=== PATIENT | female | born 2005 | race Caucasian/White ===

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

== ENCOUNTER → 2025-02-04 | Outpatient (CLI) | payer OTHER, SELFPAY ==
--- OUTSIDE RECORDS SUMMARY | 2025-02-04 21:21 | XMS RPT_ITS | CCD ---
Author Organization [facility] Care Team Providers Care Malted Milk Supervisor Name Role Phone Alie Love Unavailable Unavailable Unavailable Unavailable Unavailable Unavailable Primary Care Provider Unavailabl e PROVIDER, UNKNOWN Referring Unavailable ANDERS MACIEL Primary Care AGGIE Chao MD Attending Unavailable ANDERS MACIEL Primary Care Phil hadley REFERRED, SELF Referring Unavailable SHANNON VALDOVINOS Attending Unavailable SHANNON VALDOVINOS Primary Care Unavailable REFERRED, SELF Referring Unavailable ANDERS MACIEL Attending Unavaila ble ANDERS MACIEL Admitting Unavaila SHANNON Johnson Primary Care Unavailable REFERRED, SELF Referring Unavailable SHANNON VALDOVINOS Attending Unavailable SHANNON VALDOVINOS [facility] Care Unavailable SHANNON VALDOVINOS Primary Care Unavailable REFERRED, SELF Referring Unavailable CRISTIAN LUJAN Attending Unavailable Assessment, Health Risk Referring Unavaila ble Assessment, Health Risk Attending Unavaila ble Medications Completed/Discontinued Medications Medication Drug Class(es) Dates Sig (Normalized) Sig (Original) [id number] 60 actuat albuterol 0.09 mg/actuat metered dose inhaler (4 sources) beta2-Adrenergic Agonist Start: 08-15-2021 take 2 puff(s) by mouth every four to six hours Albuterol Sulfate HFA 108 (90 Base) MCG/ACT Inhalation Aerosol Solution inhale 2 puffs by mouth every 4 to 6 hours if needed Quantity: 1 Refills: 0 Ordered: 15-Aug-2021 Alie Love MD Start : 15-Aug-2021 Active etonogestrel 68 mg drug implant (4 sources) Progestin Start: 08-15-2021 Nexplanon 68 MG Subcutaneous Implant Quantity: 0 Refills: 0 Ordered: 15-Aug-2021 Alie Love MD Start : 15-Aug-2021 Active montelukast 10 mg oral tablet (4 sources) Leukotriene Receptor Antagonist Start: 08-15-2021 take 1 tablet by mouth at bedtime Montelukast Sodium 10 MG Oral Tablet TAKE 1 TABLET AT BEDTIME. Quantity: 1 Refills: 1 Ordered: 15-Aug-2021 Alie Love MD Start : 15-Aug-2021 Active Spacer for Metered Dose Inhaler (4 sources) Start: 08-15-2021 Spacer for Metered Dose Inhaler USE DIRECTED Quantity: 1 Refills: 0 Ordered: 15-Aug-2021 Alie Love MD Start : 15-Aug-2021 Active Problems Problem Classification Problem Date Documented Da te Episodic/Chronic Asthma (4 sources) Reactive airway disease; Translations: [Asthma, unspecified type, unspecified] Chronic Immunizations and screening for infectious disease (2 sources) Vaccination needed; Translations: [Need for prophylactic vaccination and inoculation against other viral diseases] Episodic Nonspecific chest pain (4 sources) Chest pain; Translations: [Chest pain, unspecified] Episodic Other diseases of bladder and urethra (1 source) Uninhibited neuropathic bladder, not elsewhere classified; Translations: [Uninhibited neuropathic bladder, not elsewhere classified] Onset: 06-13-2023 Chronic Spondylosis; intervertebral disc disorders; other back problems (4 sources) Low back pain; Translations: [Lumbago] Episodic Results Test Name Value Interpretation Reference Range Facility Hepatitis B Surface Antibody on 01-04-2025 HEP B Surf Ab Non-Reactive Normal [facility] Comment on above: Result Comment: <8.5 mIU/mL: Non-Reactive 8.5<= x <11.5 mIU/mL: Indeterminate >=11.5 mIU/mL: Reactive Non Reactive: Inconsistent with immunity less than <10 mIU/mL Reactive: Consistent with immunity greater than or equal to 10 mIU/mL Performed By: #### L [id number] #### [facility] [address] [place], [address] Progress Noteon 08-17-2024 Special Education Coordinator Authentication Interface Message Text Patient ID: Shena Oliveira is a 19 y.o. female. Her chief complaint(s) include: 19 YEAR WELL CHILD Assessment 1. Routine general medical examination at a health care facility Plan Shena was seen today for 19 year well child. Diagnoses and associated orders for this visit: Routine general medical examination at a health care facility - PHQ9 Assessment With Score - Health Risk Assessment - MINERVA Milner loving [facility]. Paperwork for school filled out. Getting first set of PPD Declined flu shot Return in about 1 year (around 08/17/2025) for well check. 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 No bag loader was used. 19 YEAR WELL CHILD Education: Shena is in freshman year of college and is doing well. ([employer] STUDYING NURSING ). Eating: Shena eats regular meals including fruits and vegetables and has a calcium source. (DRINK WATER/MILK). Activities & Sports: Shena has friends, participates in clubs and has drivers license. (SORORITY). Drugs: Shena does not use tobacco, does not use drugs, does not use alcohol and does not vape. Safety: Shena uses seat belt. Shena does not use phone/text while driving. (CAN SWIM). Sex: (NONE). Suicidality: Shena has no depression and has no anxiety. Menstruation Last Menstrual period: hormonal therapy (IMPLANT NO PERIODS) Output Urine and Stool Pattern: Urine and Stool Pattern: Normal stool pattern, normal urine pattern, no nocturnal enuresis. Sleep Sleeping Difficulty: no difficulty sleeping Hours of sleep at a time: 7 Teen Anticipatory Guidance The following anticipatory guidance was reviewed during the visit: Nutrition: limit junk food/fast food and soft drinks. Safety: gun safety, home safety and use safety helmet/gear with activities. Health: age appropriate dental care, age appropriate sleep habits, don't use tobacco/ alcohol/ drugs/ diet pills/ inhalants and don't smoke or chew tobacco. (SEEN DENTIST). Screenings Previous Vaccine Reactions: No. Hearing Vision Concerns: The caregiver has no concerns about the patient's hearing. The caregiver has no concerns about the patient's vision. Caregiver refused vision and hearing screening. Primary Care Review of Systems Objective Vital Signs 08/17/24 1308 BP: 118/62 Pulse: 82 Resp: 16 Weight: 58.3 kg Height: 164 cm Body mass index is 21.68 kg/m . Physical Exam Nursing note reviewed. Constitutional: She appears well. She is active. No distress. Pt pleasant and cooperative for exam HENT: Head: Atraumatic. Ears: Right Ear: Tympanic membrane and external ear normal. Left Ear: Tympanic membrane and external ear normal. Nose: Nose normal. No nasal discharge. Mouth/Throat: Mucous membranes are moist. Dentition is normal. No pharynx erythema. Oropharynx is clear. Eyes: EOM are normal. Pupils are equal, round, and reactive to light. Right eyelid exhibits no discharge. Left eyelid exhibits no discharge. Right conjunctiva is not injected. Left conjunctiva is not injected. Neck: Neck supple. Thyroid normal. Cardiovascular: Normal rate, regular rhythm, S1 normal and S2 normal. Pulses are palpable. Heart murmur not heard. Pulmonary/Chest: Breath sounds normal. No respiratory distress. Exhibits no deformity. Abdominal: Soft. Bowel sounds are normal. She exhibits no distension and no mass. There is no hepatosplenomegaly. There is no abdominal tenderness. Musculoskeletal: Cervical back: Normal range of motion and neck supple. Lumbar back: No scoliosis. General: Normal range of motion. Lymphadenopathy: No right anterior cervical adenopathy present. No left anterior cervical adenopathy present. Neurological: She is alert. She has normal strength. She exhibits normal muscle tone. Gait normal. Skin: Skin is warm. Skin is not pale. Findings: No rash. Vitals reviewed: Blood pressure 118/62, pulse 82, resp. rate 16, height 164 cm, weight 58.3 kg, last menstrual period 04/06/2024. Exam conducted with a commercial credit officer present. Normal [facility] Urine POC 8102 5on 04-07-2024 Beta HCG ( test) Ql (U) Urine Test Entered On: 04/07/2024 9:33 EDT Performed On: 04/07/2024 9:33 EDT by Tracee Calderón Urine HCG Urine Beta Human Chorionic Gonadotropin Qualitative : Negative Tracee Calderón - 04/07/2024 9:33 EDT Normal [facility] Physician Progress No [email or web address] 04-07-2024 [facility] Physician Progress Note SHENA OLIVEIRA :2005 Registration Date:04/07/2024 Assessment/Plan This Visit Diagnosis 1. Well woman exam Z01.419 doing well with nexplanon 2. Nexplanon in place Z97.5 3. Encounter for removal and reinsertion of Nexplanon Z30.46 Ordered: etonogestrel(Nexplanon (etonogestrel) 68 mg subcutaneous implant), 68 mg, Subcutaneous, ONCE AMB Remove & Insert Drug Delivery Implant [id number], 04/07/2024 09:30:00 EDT, Encounter for removal and reinsertion of Nexplanon, 1 AMB Urine POC 32988, 04/07/2024 09:30:00 EDT, Encounter for removal and reinsertion of Nexplanon 4. Pre-procedure lab exam Z01.812 Medication Reconciliation What How Much When Instructions Unchanged etonogestrel (Nexplanon 68 mg subcutaneous implant) Subcutaneous ONCE Unchanged multivitamin 1 Tabs Oral DAILY What How Much When Comments Stop Taking norethindrone (Aygestin 5 mg oral tablet) 1 Tabs Oral DAILY Chief Complaint Here for annual discuss BC - Nexplanon expires 07/05/24, Would like to replace it with another nexplanon. starting to get a period now that last 5 days. Leaving for college 04/24/24 LMP 04/05/24 History of Present Illness Shena is an 18 year old G0 here for an annual. She has a nexplanon which expires soon and she is going off to college so she was hoping to get it replaced today. Periods restarted and are every other week. Discussed removal and reinsertion and possible irregular bleeding. 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 Physical Exam Vitals & Measurements BP: 118/68 HT: 165 cm WT: 59.0 kg BMI: 21.67 LMP: 04/05/2024 00:00 EDT Depression Screening Scores Initial Depression Screen Score: 0 (04/07/24 09:09:00) Fall Risk Assessment Is the patient ambulatory (mobile): Yes (04/07/24 09:09:00) Have you had a fall within the past: No (04/07/24 09:09:00) Have you had 2 or more falls in the past: No (04/07/24 09:09:00) The vital signs were reviewed and are normal. General appearance: well developed and well nourished Lungs: Normal respiratory effort Extremities: no edema, L arm with nexplanon palpable Psychiatric: Mood: normal GARAGEMAN Procedure Details The patient was positioned. Her LEFT arm was cleansed with alcohol. I injected 1 mL of 1% lidocaine into her skin. After she was noted to be numb I washed her arm with betadine. I then made a stab incision on her skin. I was able to get the device to come out of her arm and I grasped it with a hemostat. I then placed the new device into the incision. A steri strip was placed over the incision. She tolerated the procedure well. GARAGEMAN Additional Details Menstrual History Menstrual StatusMenarcheal Last Menstrual Vbstrc7704/05/2024 GARAGEMAN Screening Date of Last Pap SmearNever Contraception Contraception MethodSubdermal implant Subdermal Implant TypeNexplanon Subdermal Implant Insertion Date07/05/21 Subdermal Implant Removal Date07/05/24 OB History History (0,0,0,0) No previous pregnancies history have been recorded Problem List/Past Medical History Ongoing BMI less than 19,adult Nexplanon in place Procedure/Surgical History Gardasil series completed: 01/03/22 Nexplanon Lt arm Lot # [id number]: 07/05/21 Medications etonogestrel(Nexplanon (etonogestrel) 68 mg subcutaneous implant), 68 mg, Subcutaneous, ONCE etonogestrel(Nexplanon 68 mg subcutaneous implant), Subcutaneous, ONCE multivitamin, 1 tabs, ORAL, DAILY Allergies No Known Medication Allergies Social History Alcohol - Denies Alcohol Use Sexual Other contraceptive use:Nexplanon Lt arm 07/05/21 Substance Abuse - Denies Substance Abuse Tobacco Use:Never (less than 100 in lifetime) Family History Prostate cancer..: Grandfather. Health Status Family Member(s) Immunizations Vaccine Date Status human papillomavirus vaccine 01/03/2022 Given human papillomavirus vaccine 09/06/2021 Given human papillomavirus vaccine 07/05/2021 Given Lab Results Test Name Test Result Date/Time U beta hCG Ql Negative 04/07/2024 09:33 EDT Normal [facility] Ambulatory Clinical Summaryo n 04-07-2024 Ambulatory Clinical Summary SHENA OLIVEIRA :2005 Registration Date:04/07/2024 Ambulatory Visit Instructions Your Diagnosis Well woman exam Nexplanon in place Encounter for removal and reinsertion of Nexplanon Pre-procedure lab exam Tests Performed AMB Urine POC 71764 Your Care Team Attending Physician - LINDSEY KELLY FACOG, AGGIE Primary Care Physician - ANDERS MACIEL Procedures Performed Gardasil series completed (01/03/2022) Nexplanon Lt arm Lot # [id number] (07/05/2021) Discharge Vitals Blood Pressure 118/68 Height 64.96 in (165 cm) Weight 130.10 lb (59.0 kg) BMI 21.67 Systolic Blood Pressure: 118 mmHg (04/07/24 09:09:00) Diastolic Blood Pressure: 68 mmHg (04/07/24 09:09:00) Mean Arterial Pressure: 85 mmHg (04/07/24 09:09:00) Height/Length Measured: 165 cm (04/07/24 09:09:00) Weight Measured: 59 kg (04/07/24 09:09:00) Body Mass Index Measured: 21.67 kg/m2 (04/07/24 09:09:00) Height/Length Measured - in2: 65 in (04/07/24 09:09:00) Ht/Wt Measurement Refused by Patient?2: No (04/07/24 09:09:00) Last Menstrual Period: 04/05/24 (04/07/24 09:09:00) What to do next Scheduled Follow-Up Appointments No results Medications What How Much When Instructions Unchanged etonogestrel (Nexplanon 68 mg subcutaneous implant) Subcutaneous ONCE Unchanged multivitamin 1 Tabs Oral DAILY What How Much When Comments Stop Taking norethindrone (Aygestin 5 mg oral tablet) 1 Tabs Oral DAILY Test Results AMB Urine POC 28444 (04/07/2024) U beta hCG Ql - Negative Allergies No Known Medication Allergies Problems Ongoing - Any problem that you are currently receiving treatment for. BMI less than 19,adult Nexplanon in place Common Emergency Awareness Tips IS IT A STROKE? Act FAST and Check for these signs: FACE Does the face look uneven? ARM Does one arm drift down? SPEECH Does their speech sound strange? TIME Call at any sign of stroke Heart Attack Signs Chest discomfort: Most heart attacks involve discomfort in the center of the chest and lasts more than a few minutes, or goes away and comes back. It can feel like uncomfortable pressure, squeezing, fullness or pain. Discomfort in upper body: Symptoms can include pain or discomfort in one or both arms, back, neck, jaw or stomach. Shortness of breath: With or without discomfort. Other signs: Breaking out in a cold sweat, nausea, or lightheaded. Remember, MINUTES DO MATTER. If you experience any of these heart attack warning signs, call to get immediate medical attention! Normal [facility] Comprehensive Intake - Texto n 04-07-2024 Comprehensive Intake - Text Comprehensive Intake Entered On: 04/07/2024 9:16 EDT Performed On: 04/07/2024 9:09 EDT by Tracee Calderón Summary Chief Complaint : Here for annual discuss BC - Nexplanon expires 07/05/24, Would like to replace it with another nexplanon. starting to get a period now that last 5 days. Leaving for college 04/24/24 LMP 04/05/24 Last Menstrual Period : 04/05/2024 EDT Menstrual Status : Prophylaxis Bladder Control Issues? : No Urine Leakage? : No Presence or absence of urinary incontinence assessed : Yes CPT-II Medication list doc'd in medical record : Yes Influenza immunization administered or previously received : No Pneumococcal vaccine administered or previously received : No Tracee Calderón - 04/07/2024 9:09 EDT Measurements Ht/Wt Measurement Refused by Patient? : No Weight Measured : 59.0 kg(Converted to: 130 lb 1 oz, 130.073 lb) Height/Length Measured : 165 cm(Converted to: 5 ft 5 in, 64.96 in) Body Mass Index Measured : 21.67 kg/m2 Body Mass Index documented : Yes Height/Length Measured - in : 65 in(Converted to: 5 ft 5 in, 165 cm) Tracee Calderón - 04/07/2024 9:09 EDT Vitals Require BP : Yes Systolic Blood Pressure : 118 mmHg Diastolic Blood Pressure : 68 mmHg Mean Arterial Pressure : 85 mmHg Last Systolic BP : less than 130 mmHg Last Diastolic BP : less than 80 mmHg Pain Present : No actual or suspected pain Pain : 0 Pain severity quantified : No pain present Tracee Calderón 04/07/2024 9:09 EDT Infection Screening Travel outside of [facility] within past 21 days? : No Positive COVID test in the last 10 days? : No Exposure to and/or close contact with a person who has a laboratory-confirmed COVID test within the last 48 hours. : No Coronavirus New Symptoms w/o Cause : No Tracee Calderón 04/07/2024 9:09 EDT Depression Screening Is patient currently : None of the Below Feeling Down, Depressed, Hopeless : Not at all Little Interest - Pleasure in Activities : Not at all Initial Depression Screen Score : 0 Depression Screening Score 0 : No Tracee Calderón 04/07/2024 9:09 EDT Falls Risk Assessment Is the patient ambulatory (mobile) : Yes Have you had 2 or more falls in the past year : No Have you had a fall within the past year that has caused an injury : No Patient screen for fall risk : no falls in last year OR 1 fall with no injury in last year Tracee Calderón 04/07/2024 9:09 EDT Normal [facility] GARAGEMAN Visit - Texton GARAGEMAN Visit - Text GARAGEMAN Visit Entered On : 04/07/2024 9:17 EDT Performed On: 04/07/2024 9:17 EDT by Tracee Calderón GARAGEMAN Menstrual History Menstrual Status : Menarcheal Tracee Calderón 04/07/2024 9:17 EDT GARAGEMAN Screenings Date of Last Pap Smear : Never Tracee Calderón 04/07/2024 9:17 EDT Contraception Contraception Method : Subdermal implant Subdermal Implant Type : Nexplanon Subdermal Implant Insertion Date : 07/05/21 Subdermal Implant Removal Date : 07/05/24 Tracee Calderón 04/07/2024 9:17 EDT Normal [facility] Phone Msgon 08-23-2023 Phone Msg - From: Lisa Harris MA To: AGGIE PORTILLO MD; Sent: 08/20/2023 14:05:18 EST Subject: bleeding on nexplanon Caller Name: SHENA OLIVEIRA; Caller Number: H Pt had nexplanon put in 07/05/21 and now she experiencing period like bleeding, Karine ([place] mom) wasnt sure if it was just once a month or bleeding though out the month. I told Karine that she can try aygestin or maybe switching out the Nexplanon earlier than the expiration date. Karine wanted to know what your thoughts were on it. MLOM for Divine to call me back. Submitted: Order:norethindrone (Aygestin 5 mg oral tablet) 1 tabs ORAL DAILY Qty: 21 tabs Refills: 1 Substitutions Allowed Route To Pharmacy - [id number] Signed by AGGIE PORTILLO MD, FACOG 08/22/2023 15:16:00 EST I spoke with Divine (mom) and recommended she try a 21 day cycle of aygestin to see if it will stop her irregular bleeding before switching out her nexplanon device since she is only 2 years in with the device. AB Normal [facility] US KIDNEY/BLADDERon 06-13-20 23 US KIDNEY/BLADDER * * *Final Report* * * DATE OF EXAM: Jun 13 2023 7:05PM GEETA 1055 - US KIDNEY/BLADDER / PROCEDURE REASON: N31.0 GROSS HEMATURIA * * * * Physician Interpretation * * * * EXAMINATION: RENAL ULTRASOUND CLINICAL HISTORY: 17 years Female with N31.0 GROSS HEMATURIA; TECHNIQUE: Sonography of the kidneys and urinary bladder was performed. Images were obtained and stored in a permanent archive. MQ: UR_1 COMPARISON: None RESULT: Right Kidney: -Renal length: 9.4 cm -Parenchyma: Normal parenchymal echogenicity. Normal parenchymal thickness. -Collecting system: Mild RIGHT renal pelviectasis with AP dimension of the intrarenal pelvis measuring 0.7 cm. No caliectasis or proximal hydroureter noted. -Calculus: No echogenic, shadowing calculus. -Lesion: None. Left Kidney: -Renal length: 8.1 cm -Parenchyma: Normal parenchymal echogenicity. Question focal parenchymal thinning/scarring of the inferior pole of the LEFT kidney. -Collecting system: No hydronephrosis. -Calculus: No echogenic, shadowing calculus. -Lesion: None. Bladder: Urinary bladder is moderately distended with prevoid volume of 171 mL. Bilateral ureteral jets are noted. No distal hydroureter appreciated. Post void residual of 26 mL. IMPRESSION: 1. Size discrepancy of the kidneys, RIGHT greater than LEFT. This may relate to questioned inferior LEFT renal scarring. 2. Mild RIGHT renal pelviectasis without caliectasis or proximal hydroureter. 3. Small post void residual in the urinary bladder of 26 mL. Customer Assistant: PSCB Transcribe Date/Time: Jun 13 2023 7:26P Dictated by : OLEKSANDR RAMIREZ MD This examination was interpreted and the report reviewed and electronically signed by: OLEKSANDR RAMIREZ MD on Jun 13 2023 7:33PM EST [id number] Normal [facility] Panel Informationon 09-28 [email or web address] ?RetrieveTestByDateTime?P [email or web address]=[id number]&Date=2 04-01-2022&Time=15%3a22%3a 07%3a00&TestType=ECG&Site =5&OutputType=PDF&Ext=PDF [facility] [address] Work Phone: * Pediat halima ECG Analysis * [facility] [address] Work Phone: Borderline Abnormal [facility] [address] Work Phone: [phone] [facility] [address] Work Phone: [phone] [facility] [address] Work Phone: [phone] [facility] [address] Work Phone: [phone] [facility] [address] Work Phone: [phone] [facility] [address] Work Phone: [phone] [facility] [address] Work Phone: 53 [phone] [facility] [address] Work Phone: [phone] [facility] [address] Work Phone: 41 [phone] [facility] [address] Work Phone: [phone] [facility] [address] Work Phone: [phone] [facility] [address] Work Phone: [phone] [facility] [address] Work Phone: [phone] [facility] [address] Work Phone: 68 [phone] [facility] [address] Work Phone: Peds Cardiology - 3-19 y/oon 09-28-2021 Peds Cardiology - 3-19 y/o Diagnoses/Problems Assessed Chest pain (786.50) (R07.9) Reactive airway disease (493.90) (J45.909) Patient Discussion/Summary Shena has been having chest pain. Chest pain is very common in school age children and adolescents, but is very rarely related to the heart. Shena's heart evaluation including examination and electrocardiogram (EKG or ECG) was normal today. I have no concerns about Leopoldos heart. Like most children with chest pain, Leopoldos pain is most likely musculoskeletal. One of the most common causes of musculoskeletal chest pain in children is costochondritis (see below). Rest and non-steroidal anti-inflammatory medications (Motrin, Advil, Aleve) are the best therapies. Please take these medications with food to prevent stomach upset. There are no restrictions to Shena's activity level and no antibiotics are needed prior to dental visits. Sue has also been having some palpitations since her COVID-19 infection in July. If these become more significant we can consider a heart rhythm monitor in the future. It was our pleasure to see Shena today. We do not need to see Shena back for routine follow-up, but would be happy to see Shena in the future if there are any new issues or concerns. If you have any questions or concerns regarding this evaluation, please do not hesitate to contact me. You can reach our Pediatric Cardiology Nurses Friday through Friday from 8 am - 4 pm at [phone]. If you have urgent concerns afterhours or on weekends, you can reach the [employer] Java Spring Developer on-call 24/03 by calling [phone] and asking for the pediatric dermatologist regional transfer liaison. Tonya Jackson MD Electro Optics Engineer of Pediatrics Division of Pediatric Cardiology [place] [address] e-mail: [email or web address] Costochondritis Frequently Asked Questions: What is costochondritis? Costochondritis is inflammation of the joint between a rib and the breastbone (sternum) or between the bony part of the rib and the rib cartilage. Cartilage is a tough rubbery tissue that lines and cushions the surfaces of joints. Another name for this problem is Tietze's syndrome. It is more common in women than men and tends to occur more often in children or people over 40 years old. How does it occur? Sometimes costochondritis is caused by: an injury to the chest; for example, from falling or getting hit by something in the chest an infection, such as a cold or flu Many times the cause cannot be found. What are the symptoms? The main symptom of costochondritis is pain or tenderness in the front of the chest near the breastbone. It occurs most often on the left side of the upper chest. It is usually a sharp pain that gets worse if you press on it or move certain ways (stretching, for instance). Sometimes the pain may be confused with heart attack pain. How is it diagnosed? Your health care provider will ask about your symptoms and examine your chest. Costochondritis is not a serious condition. Because the pain can be confused with a heart problem, you may need some tests for proper diagnosis of the problem. How is it treated? Costochondritis is treated with anti-inflammatory medicines, such as ibuprofen or naproxen. Acetaminophen may help the pain if you cannot or should not take anti-inflammatories. How long will the effects last? The pain of costochondritis usually lasts for a week or two, but can last for several months, particularly in children. It does not cause any long-term problems. How can I help take care of myself? Avoid activities or movements that make the pain worse. Sometimes heat makes the pain better. A heating pad on low can be put on the area for 20 minutes 4 to 8 times a day. When the pain is gone, go back to your normal activities slowly. Be sure to stretch and warm up properly before you start any strenuous exercise or activity. Provider Impressions Assessment: SHENA is a 16 year old female who presents for evaluation of chest pain after a COVID-19 infection several months ago. The differential diagnosis for chest pain (including musculoskeletal, idiopathic, respiratory, gastroenterologic, psychiatric, cardiac and other causes) was discussed at length with SHENA and her family. Potential cardiac causes of chest pain in the pediatric patient include structural heart diseases, arrhythmias, and inflammatory processes such as myocarditis and pericarditis. We discussed that these disease processes are extremely rare, although they must be considered. Based on the history, physical exam and diagnostic testing, there does not appear to be a cardiovascular abnormality underlying SHENA's symptoms. There is no indication of an increased risk for sudden cardiac in SHENA compared (more content not included)... Normal [facility] Office Visit (Family Medicin e)on 08-15-2021 Follow-up visit Diagnoses/Problems Reactive airway disease (493.90) (J45.909) Chest pain (786.50) (R07.9) Orders Chest pain Pediatric - Cardiology Referral Evaluation and Treatment Evaluate AND Treat Status: Hold For - Scheduling Requested for: [id number] Reactive airway disease Stop: Flovent HFA 110 MCG/ACT Inhalation Aerosol Start: Albuterol Sulfate HFA 108 (90 Base) MCG/ACT Inhalation Aerosol Solution; inhale 2 puffs by mouth every 4 to 6 hours if needed Start: Montelukast Sodium 10 MG Oral Tablet (Singulair); TAKE 1 TABLET AT BEDTIME Start: Spacer for Metered Dose Inhaler; USE DIRECTED Patient Discussion/Summary By signing my name below, I,..nAnie andrews, attest that this documentation has been prepared under the direction and in the presence of Dr. Alie Love. All medical record entries made by the Scribe were at my direction and personally dictated by me. I have reviewed the chart and agree that the record accurately reflects my personal performance of the history, physical exam, discussion and plan. Provider Impressions Referral to pediatric cardiology for atypical chest pain and SOB on exertion. Call with issues or if symptoms worsen or don't improve. flovent no covered, cost more than $200 ( deductible) trial montelukast, rescue inhaler, use explained educated re use and spacer Follow up with me 4 weeks Chief Complaint EP here for follow up for post covid cough and states that she is experiencing chest pain with exertion. 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 History of Present Illness 16 year old female presenting for f/u COVID. She got sick Friday after thanksgi. sxs resolved after 10 days still some residual sob tght chest sore on swim team Feels her chest hurts and it is painful to breathe after practice and for some time after . Her COVID symptoms were mostly being exhausted and feeling issues with breathing. tight chest congestion cough [place] discomfort and congestion. Did not lose taste or smell. Had fever for first 2.5 days. Up to 103 temperature. was not seen in er or doc office took only otc meds Review of Systems Constitutional: normal activity, no fever and normal sleeping Eyes: no discharge from the eyes, no redness and no change in vision ENT: no ear pain, no nasal congestion and no sore throat Cardiovascular: chest pain, but no palpitations, the heart rate was not slow, the heart rate was not fast and no lower extremity edema Respiratory: shortness of breath and dyspnea with exertion, but no wheezing and no sneezing Gastrointestinal: no abdominal pain, no vomiting, no constipation and no diarrhea Genitourinary: no dysuria Musculoskeletal: no muscle pain Active Problems Low back pain (724.2) (M54.50) Family History Family history of diabetes mellitus (V18.0) (Z83.3) Social History Currently in school Allergies No Known Allergies Recorded By: Aile Love; 06/25/2019 11:40:05 AM Current Meds Medication NameInstructionReason Nexplanon 68 MG Subcutaneous ImplantHealth Maintenance Vitals Vital Signs Recorded: [id number] 04:35PM Httwrjqmuet52.6 F Fkktmqla290 Tliizcsum22 Johnpv179 lb 2-20 Weight Dhyljhvpfg49 % Tobacco Useb) No Physical Exam Constitutional - Well developed, well nourished, well hydrated and no acute distress. Head and Face - Normocephalic, atraumatic. Eyes - Conjunctiva and lids normal. Ears, Nose, Mouth, and Throat - No nasal discharge. External without deformities. TM's normal color, normal landmarks, no fluid, non-retracted. External auditory canals without swelling, redness or tenderness. Pharyngeal mucosa normal. No erythema, exudate, or lesions. Mucous membranes moist. Neck - Full range of motion. No significant cervical adenopathy. Pulmonary - No grunting, flaring or retractions. Clear to auscultation. Cardiovascular - Regular rate and rhythm. No significant murmur. 'Scores and Scales' Signatures Electronically signed by : Alie Love MD; Aug 15 2021 9:38PM EST (Author) Normal [facility] Tobacco Screening.on 021 Tobacco use status [facility] b) No [employer] Work Phone: US Breast Limited Lefton US Breast Limited Left Patient Name: SHENA OLIVEIRA Ultrasound ACCESSION EXAM DATE/TIME PROCEDURE ORDERING PROVIDER [id number] 01/11/2021 08:48 EDT US Breast Limited Left AGGIE PORTILLO CPT code 86347 Reason For Exam (US Breast Limited Left) N63.0, breast nodule Report REASON FOR EXAM: characterization of a palpable mass. INDICATED PROBLEM: Indicated problem(s): left breast palpable abnormality Left breast pain. PROCEDURE: US BREAST LIMITED LEFT: JANUARY 11, 2021 - No prior studies available for comparison. . FINDINGS: Targeted ultrasound imaging in patient's area of pain, lower inner quadrant left breast, and along patient's palpable abnormality, 7:30 position, 8 cm from the nipple, left breast. Normal dense breast parenchymal tissue is identified. No mass or architectural distortion is identified. IMPRESSION: No sonographic correlate to account for patient's area of pain and palpable abnormality, left breast. ASSESSMENT: Category 2 Benign RECOMMENDATION: Physical exam/clinical correlation. Routine screening mammogram of both breasts at age 40. . Report Dictated on Final Signed Date and Time: 01/11/2021 8:53 am Signed by: MD SUSANNA, [facility] SPINE, LUMBOSACRAL; 2 OR 3 V [facility] 06-25-2019 SPINE, LUMBOSACRAL; 2 OR 3 VIEWS Patient Name: SHENA OLIVEIRA STUDY: SPINE, LUMBOSACRAL; 2 OR 3 VIEWS;; 06/25/2019 12:00 pm INDICATION: low back pain. COMPARISON: None. ACCESSION NUMBER(S): [id number] ORDERING CLINICIAN: ALIE LOVE FINDINGS: AP and lateral view of the lumbar spine. The osseous structures and soft tissues appear normal. Alignment is normal. No fracture or dislocation is noted. IMPRESSION: Unremarkable lumbar spine series Electronically signed by: MADAI PALOMARES MD [facility] Vital Signs Date Time Vital Sign Value Performing Clinician Facility 09-28-2021 15:32-0500 Body height 163 cm Alie Love Work Phone: MQ-Bxmzqdsxws-Vqek na 220 Work Phone: 09-28-2021 15:32-0500 Body mass index (BMI) [Ratio] 18.27 kg/m2 Alie Love Work Phone: VV-Cthewypopl-Okqm na 220 Work Phone: 09-28-2021 15:32-0500 Body surface area Derived from formula 1.5 m2 Alie Love Work Phone: RZ-Xofdxpzkuk-Ttmp na 220 Work Phone: 09-28-2021 15:32-0500 Body temperature 98.6 [degF] Alie Love Work Phone: UA-Pwuwibxmwd-Mpnh na 220 Work Phone: 09-28-2021 15:32-0500 Body weight 48.54 kg Alie Love Work Phone: CU-Wbyhfsxjdj-Lhtt na 220 Work Phone: 09-28-2021 15:32-0500 Diastolic blood pressure 69 mm[Hg] Alie Love Work Phone: FQ-Wxqlixpifq-Rkbb na 220 Work Phone: 09-28-2021 15:32-0500 Heart rate 71 /min Alie Love Work Phone: SH-Blwaauebzs-Dosi na 220 Work Phone: 09-28-2021 15:32-0500 SaO2% (BldA) [Mass fraction] 100 % Alie Love Work Phone: QV-Awlpejcywa-Fugv na 220 Work Phone: 09-28-2021 15:32-0500 Systolic blood pressure 105 mm[Hg] Alie Love Work Phone: DI-Xidqeiaxqo-Hrvb na 220 Work Phone: 09-28-2021 15:32-0500 52 1 Alie Love Work Phone: BZ-Oucqearxbb-Ywob na 220 Work Phone: Comment on above: 2-20_SPerc 09-28-2021 15:32-0500 24 1 Alie Love Work Phone: GE-Aycurtyrbo-Dckz na 220 Work Phone: Comment on above: 2-20_WPerc 09-28-2021 15:32-0500 19 1 Alie Love Work Phone: DK-Knojrekkqn-Tedg na 220 Work Phone: Comment on above: BMIPerc 08-15-2021 16:35-0500 Body temperature 98.6 [degF] Alie Love Work Phone: [facility] Work Phone: 08-15-2021 16:35-0500 Body weight 49.9 kg Alie Love Work Phone: [facility] Work Phone: 08-15-2021 16:35-0500 Diastolic blood pressure 68 mm[Hg] Alie Love Work Phone: [facility] Work Phone: 08-15-2021 16:35-0500 Systolic blood pressure 118 mm[Hg] Alie Love Work Phone: [facility] Work Phone: 08-15-2021 16:35-0500 31 1 Alie Love Work Phone: [facility] Work Phone: Comment on above: 10-21_WPerc Encounters Encounter Date Encounter Type Care Provider Facility Start: 01-04-2025 ambulatory Health Risk Assessment Facility:[facility] Start: 09-04-2024 End: 09-04-2024 ambulatory [facility] Start: 09-02-2024 End: 09-02-2024 ambulatory SELF REFERRED [facility] Start: 08-19-2024 End: 08-19-2024 ambulatory SELF REFERRED [facility] Start: 08-17-2024 End: 08-17-2024 ambulatory SELF REFERRED [facility] Start: 04-07-2024 End: 04-07-2024 ambulatory AGGIE PORTILLO MD Facility[place] Start: 08-20-2023 ambulatory ANDERS Shane Facility:[facility] Start: 06-13-2023 ambulatory UNKNOWN PROVIDER Facili ty:[facility] Start: 06-13-2023 End: 06-13-2023 Subsequent hospital visit by physician [facility] Work Phone: Radiology Comment on above: Uninhibited neuropat hic bladder, 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] Start: 09-28-2021 Office consultation new/estab patient 60 min Alie Donahue Kate Work Phone: YX-Gxnkmxmikt-Qcmlmq 220 Work Phone: Start: 09-28-2021 Patient encounter procedure Alie Godfrey Kate Work Phone: HK-Unvfzeyhra-Qpjsre 220 Work Phone: Start: 08-15-2021 Office outpatient vi sit 15 minutes Alie Love Work Phone: [facility] Work Phone: Procedures Date Procedure Procedure Detail Performing Clinician Start: 06-13-2023 Us retroperitoneal r eal time w/image complete Mei Thurman Work Phone: Plan of Treatment Date Care Activity Detail Author Start: 05-02-2023 Covid-19 Vaccine ( season) Covid-19 Vaccine ( season) [facility] Start: 05-02-2023 Influenza vaccination [facility] Start: 09-28-2021 NPV, Provider: Tonya Jackson, Status: Pen, Time: 3:00 PM NPV, Provider: Tonya Jackson, Status: Pen, Time: 3:00 PM [facility] Work Phone: Start: 09-17-2021 FUV, Provider: Alie Love, Status: Pen, Time: 3:30 PM FUV, Provider: Alie Love, Status: Pen, Time: 3:30 PM [facility] Work Phone: Start: 09-07-2021 NPV, Provider: Tonya Jackson, Status: Pen, Time: 3:30 PM NPV, Provider: Tonya Jackson, Status: Pen, Time: 3:30 PM [facility] Work Phone: Start: 2021 Meningococcal Conjugate Vaccine (1 - 2-dose series) Meningococcal Conjugate Vaccine (1 - 2-dose series) [facility] Start: 2020 Chlamydia Screening (<18) Chlamydia Screening (<18) [facility] Start: 2020 GC (Gonorrhea) Screening (<18) GC (Gonorrhea) Screening (<18) [facility] Start: 2019 Peds To Adult Transition Annual Assessment Peds To Adult Transition Annual Assessment [facility] Start: 2017 Adult depression screening assessment Depression Screening [facility] Start: 2017 Peds To Adult Transition Initial Discussion Peds To Adult Transition Initial Discussion [facility] Start: 2014 HPV Vaccine (1 - 2-dose series) HPV Vaccine (1 - 2-dose series) [facility] Start: 2012 Urine microalbumin profile DTaP,Tdap,Td Vaccine (1 - Tdap) [facility] Start: 2006 MMR Vaccine (1 of 2 - Standard series) MMR Vaccine (1 of 2 - Standard series) [facility] Start: 2006 Varicella Vaccine (1 of 2 - 2-dose childhood series) Varicella Vaccine (1 of 2 - 2-dose childhood series) [facility] Start: 2005 Polio Vaccine (1 of 3 - 4-dose series) Polio Vaccine (1 of 3 - 4-dose series) [facility] Start: 2005 Hepatitis B Vaccine (1 of 3 - 3-dose series) Hepatitis B Vaccine (1 of 3 - 3-dose series) [facility] Immunizations Immunization Date Immunization Notes Care Provider Fa cility 09-06-2021 Human Papillomavirus 9-valent vaccine Alie Love Work Phone: LY-Sshkijyrwj-Smcgf a 220 Work Phone: 07-05-2021 Human Papillomavirus 9-valent vaccine Alie Love Work Phone: [facility] Work Phone: 06-30-2020 hepatitis A vaccine, pediatric/adolescent dosage, 2 dose schedule Alie Love Work Phone: [facility] Work Phone: 09-24-2017 hepatitis A vaccine, pediatric/adolescent dosage, 2 dose schedule Alie Love Work Phone: [facility] Work Phone: 09-24-2017 meningococcal polysaccharide (groups A, C, Y and W-135) diphtheria toxoid conjugate vaccine (MCV4P) Alie Love Work Phone: [facility] Work Phone: 09-24-2017 tetanus toxoid, redu nicolette diphtheria toxoid, and acellular pertussis vaccine, adsorbed Alie Love Work Phone: [facility] Work Phone: 11-28-2010 Diphtheria, tetanus toxoids and acellular pertussis vaccine, and poliovirus vaccine, inactivated Alie Love Work Phone: [facility] Work Phone: 11-28-2010 measles, mumps, rube lla, and varicella virus vaccine Alie Love Work Phone: [facility] Work Phone: 02-05-2007 poliovirus vaccine, unspecified formulation Alie Love Work Phone: [facility] Work Phone: 11-06-2006 diphtheria, tetanus toxoids and acellular pertussis vaccine Alie Love Work Phone: [facility] Work Phone: 11-06-2006 pneumococcal conjuga te vaccine, 7 valent Alie Love Work Phone: [facility] Work Phone: 09-11-2006 influenza, seasonal, injectable, preservative free Alie Love Work Phone: [facility] Work Phone: 09-11-2006 influenza virus vacc ine, unspecified formulation 2 Work Phone: [facility] 08-14-2006 haemophilus influenz ae type b vaccine, PRP-T conjugate Alie Love Work Phone: [facility] Work Phone: 08-14-2006 hepatitis B vaccine, pediatric or pediatric/adolescent dosage Alie Love Work Phone: [facility] Work Phone: 08-14-2006 measles, mumps and rubella virus vaccine Alie Love Work Phone: [facility] Work Phone: 08-14-2006 varicella virus vaccine Annabel valerio Godfrey NavarreteKate Work Phone: [facility] Work Phone: 08-04-2006 influenza, seasonal, injectable, preservative free Alie M Kate Work Phone: [facility] Work Phone: 02-19-2006 diphtheria, tetanus toxoids and acellular pertussis vaccine Alie M Kate Work Phone: [facility] Work Phone: 02-19-2006 pneumococcal conjuga te vaccine, 7 valent Alie Love Work Phone: [facility] Work Phone: 2005 diphtheria, tetanus toxoids and acellular pertussis vaccine Alie Love Work Phone: [phone] [place] [address] Work Phone: 2005 haemophilus influenz ae type b conjugate and Hepatitis B vaccine Alie Love Work Phone: [facility] Work Phone: 2005 pneumococcal conjuga te vaccine, 7 valent Alie Godfrey Kate Work Phone: [facility] Work Phone: 2005 poliovirus vaccine, inactivated Alie Love Work Phone: [facility] Work Phone: 2005 diphtheria, tetanus toxoids and acellular pertussis vaccine Alie Love Work Phone: [facility] Work Phone: 2005 haemophilus influenz ae type b vaccine, PRP-T conjugate lAie Love Work Phone: [facility] Work Phone: 2005 hepatitis B vaccine, pediatric or pediatric/adolescent dosage Alie Love Work Phone: [facility] Work Phone: 2005 pneumococcal conjuga te vaccine, 7 valent Alie Love Work Phone: [facility] Work Phone: 2005 poliovirus vaccine, unspecified formulation Alie Love Work Phone: [facility] Work Phone: Payers Date Payer Category Payer Self-pay 2022 Unknown 2022 Unknown [id number] 2005 Unknown [id number] 2005 Unknown [id number] 2.16. [id number] 2005 Unknown [id number] 2.16. [id number] 2005 Unknown [id number] 2.16. [id number] 2005 Unknown [id number] 2.16. [id number] 1976 Unknown [id number] 2.16.8 [id number] Unknown [id number] Unknown [id number] Unknown [id number] [id number] [id number] Social History Date Type Detail Facility Currently in school Currently in school [facility] Start: 2005 Sex Assigned At Not on file [facility] Gender identity Not on file [facility] inic Progress note 06-13-2023 Note Date & Type Note Facility 06-13-2023 Note HNO ID: [id number] Author: Yaneth Yi Tech Service: Radiology Author Type: Sand Molder Type: Progress Notes Filed: 06/13/2023 7:14 PM Note Text: Radiology Service Progress Note PATIENT NAME: Shena Oliveira DATE OF SERVICE: June 13, 2023 TIME: 7:14 PM PATIENT IDENTITY VERIFICATION COMPLETED USING TWO (2) IDENTIFIERS: Name and Date of confirmed by patient verbally. FALL SCREENING: Has the patient had 2 falls in the last year or 1 fall with injury or currently using an Ambulatory Assistive Device (Walker, Cane, Wheelchair, Crutches, etc.)? No PATIENT GENDER DATA: Female. status: : No status: NO. PATIENT RELEVANT IMPLANT DATA REVIEWED: Not Applicable RADIOLOGY DEPARTMENT: Ultrasound PERIPHERAL IV DATA: Not applicable SIGNED BY: Raymond Pena June 13, 2023 7:14 PM [facility] History of Present illness Narrative 06-13-2023 Yaneth Yi Tech - 06/13/2023 6:30 PM EDT Note Date & Type Note Facility 06-13-2023 History of Presen t illness Narrative Radiology Service Progress Note PATIENT NAME: Shena Oliveira DATE OF SERVICE: June 13, 2023 TIME: 7:14 PM PATIENT IDENTITY VERIFICATION COMPLETED USING TWO (2) IDENTIFIERS: Name and Date of confirmed by patient verbally. FALL SCREENING: Has the patient had 2 falls in the last year or 1 fall with injury or currently using an Ambulatory Assistive Device (Walker, Cane, Wheelchair, Crutches, etc.)? No PATIENT GENDER DATA: Female. status: : No status: NO. PATIENT RELEVANT IMPLANT DATA REVIEWED: Not Applicable RADIOLOGY DEPARTMENT: Ultrasound PERIPHERAL IV DATA: Not applicable SIGNED BY: Raymond Pena June 13, 2023 7:14 PM documented in this encounter [facility] History of Present illness Narrative 10-03-2021 Note Date & Type Note Facility 10-03-2021 History of Present illness Narrative [facility] Pediatric Cardiology [id number] [facility] [address] [address]Xxt: [phone] ANRNILG is a 16 year old female who has been referred by Dr. Alie Love for evaluation of chest pain following COVID-19. SHENA presents with her mother today. The history was obtained from SHENA and her mother. Records were reviewed, and a summary of those records is integrated within the history of present illness.SHENA tested positive for COVID-19 shortly after Thanks2020. Symptoms included cough, congestion, rhinorrhea, and fever and lasted for a few days. Since recovering from COVID, Shena noticed chest pain after swimming practice almost daily up until 2 weeks ago. The episodes of pain last for a few seconds, midsternal, and dissipate with rest. Since 2 weeks ago, she has noticed this midsternal chest pain every other day. The pain is not related to meals. It does not radiate to the arms, neck, jaw or back. It is not associated with nausea or diaphoresis. There are no other associated symptoms including no shortness of breath, palpitations, headache, change in vision, presyncope, or syncope.Additionally she describes palpitations since her COVID infection. She describes them as skipped beats, occurring over seconds, without tachycardia. They do not occur in setting of chest pain. Of note, these have become less frequent and less significant over time.SHENA has no other history of any other symptoms or difficulties potentially referable to the cardiovascular system and is described as an otherwise healthy child. She has no difficulty with physical activity or exertion. SHENA's mother has no other specific concerns about their health. SHENA's routine care and immunizations are up-to-date.Past Medical History:Born full term. No complications during or delivery. Home with mom from the hospital. No hospitalizations or surgeries. No chronic illnesses/diagnoses.Cardiovascula r Review of Systems:Negative for subjective tachycardia, episodes of respiratory distress, difficulty with exertion, dizziness, lightheadedness or loss of consciousness. Negative for swelling or edema of the face, trunk or extremities.Cardiovascular Family History:Shena's father has a history of a tachycardia (mother does not remember name) that underwent ablation. There no history of congenital heart disease. There is no history of early sudden/unexplained . There is no history of cardiomyopathy of any type. No known history of Long QT syndrome, Niuih-Dmejwmkcf-Vvezm syndrome or Brugada syndrome. There is no history of heart attack or stroke before the age of 55 years in a close family member.Social History:SHENA lives at home with her mom, dad. She is currently in the 10th grade and doing relatively well. She is a competitive swimmer. [facility] Work Phone: History of Present illness Narrative 09-28-2021 Note Date & Type Note Facility 09-28-2021 History of Present illness Narrative [facility] [id number], [place] [id number]: [phone] [id number] is a 16 year old female who has been referred by Dr. Alie Love for evaluation of chest pain following COVID-19. SHENA presents with her mother today. The history was obtained from SHENA and her mother. Records were reviewed, and a summary of those records is integrated within the history of present illness.SHENA tested positive for COVID-19 shortly after Thanksgi2020. Symptoms included and lasted for a few days. Since recovering from COVID, Shena noticed chest pain AFTER practice almost daily up until 2 weeks ago. The episodes of pain last for a few seconds, midsternal, and dissipate with rest. Since 2 weeks ago, she has noticed this midsternal chest pain every other day. The pain is not related to meals. It does not radiate to the arms, neck, jaw or back. It is not associated with nausea or diaphoresis. There are no other associated symptoms including no shortness of breath, palpitations, headache, change in vision, presyncope, or syncope.Additionally she describes palpitations since her Covid infection. She describes them as skipped beats, occurring over seconds, without tachycardia. They do not occur in setting of chest pain.SHENA has no other history of any other symptoms or difficulties potentially referable to the cardiovascular system and is described as an otherwise healthy child. %(input he/she) has no difficulty with physical activity or exertion. SHENA's %(input relative) have no other specific concerns about their health. SHENA's routine care and immunizations are up-to-date.Past Medical History:Born full term. No complications during or delivery. Home with mom from the hospital. No hospitalizations or surgeries. No chronic illnesses/diagnoses.Cardiovascula r Review of Systems:Negative for subjective tachycardia, episodes of respiratory distress, difficulty with exertion, dizziness, lightheadedness or loss of consciousness. Negative for swelling or edema of the face, trunk or extremities.Cardiovascular Family History:Shena's father has a history of a tachycardia (mother does not remember name) that underwent ablation. There no history of congenital heart disease. There is no history of early sudden/unexplained . There is no history of cardiomyopathy of any type. No known history of Long QT syndrome, Hyhru-Jvmckiwom-Xwjna syndrome or Brugada syndrome. There is no history of heart attack or stroke before the age of 55 years in a close family member.Social History:SHENA lives at home with her mom, dad. %(input he/she) is currently in the 10th grade and doing relatively well. She is a competitive swimmer. [employer] Work Phone: History of Present illness Narrative 08-26-2021 Note Date & Type Note Facility 08-26-2021 History of Present illness Narrative 16 year old female presenting for f/u COVID.She got sick Friday after thanksgiving.sxs resolved after 10 daysstill some residual sob tght chest soreon swim teamFeels her chest hurts and it is painful to breathe after practice and for some time after .Her COVID symptoms were mostly being exhausted and feeling issues with breathing. tight chest congestion coughFelt discomfort and congestion.Did not lose taste or smell.Had fever for first 2.5 days.Up to 103 temperature.was not seen in er or doc offic[place] only [facility] Work Phone: Chief complaint Narrative - Reported Note Date & Type Note Facility Chief complaint Narrative - Reported New patient office visit- shortness of breath, chest pain following COVID-19Accompanied by mother. [employer] Work Phone: Chief complaint Narrative - Reported Note Date & Type Note Facility Chief complaint Narrative - Reported New patient office visit- shortness of breath, chest pain following COVID-19Accompanied by mother. [employer] Work Phone: History of Present illness Narrative Note Date & Type Note Facility History of Present illness Narrative 16 year old female presenting for f/u COVID.She got sick Friday after thanksgiving.sxs resolved after 10 daysstill some residual sob tght chest soreon swim teamFeels her chest hurts and it is painful to breathe after practice and for some time after .Her COVID symptoms were mostly being exhausted and feeling issues with breathing. tight chest congestion coughFelt discomfort and congestion.Did not lose taste or smell.Had fever for first 2.5 days.Up to 103 temperature.[facility] er [facility] Summary Purpose Family History No Family History Records FoundUnknown Family Member Name Dates Details Family history of diabetes m ellitus: Mother(V18.0, Z83.3) Status:Active Unknown Family Member Name Dates Details Family history of diabetes m ellitus: Mother(V18.0, Z83.3) Status:Active Unknown Family Member Name Dates Details Family history of diabetes m ellitus: Mother(V18.0, Z83.3) Status:Active Unknown Family Member Name Dates Details Family history of diabetes m ellitus: Mother(V18.0, Z83.3) Status:Active Advance Directives No Advanced Directives Records FoundNo Advanced Directives Records FoundNo Advanced Directives Records FoundNo Advanced Directives Records FoundNo Advanced Directives Records FoundNo Advanced Directives Records FoundNo Advanced Directives Records Found Chief Complaint EP here for follow up for post covid cough and states that she is experiencing chest pain with exertion. 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 Additional Source Comments INFORMATION SOURCE (unrecogn ized section and content) DATE CREATED AUTHOR 07/07/2019 [facility] DATE CREATED AUTHOR AUTHOR'S ORGANIZ ATION 01/25/2021 [facility] DATE CREATED AUTHOR AUTHOR'S ORGANIZ ATION 10/04/2021 [employer] DATE CREATED AUTHOR AUTHOR'S ORGANIZ ATION 06/15/2023 [facility] DATE CREATED AUTHOR AUTHOR'S ORGANIZ ATION 04/09/2024 [facility] DATE CREATED AUTHOR AUTHOR'S ORGANIZ ATION 09/11/2024 [facility] DATE CREATED AUTHOR AUTHOR'S ORGANIZ ATION 01/07/2025 [facility] Source Comments (unrecognize d section and content) In the event this informatio n is protected by the Federal Confidentiality of Alcohol and Drug Abuse Patient Records regulations: The Federal rules restrict any use of the information to criminally investigate or prosecute any alcohol or drug abuse patient.[facility] FOR RECORDS PERTAINING TO PATIENTS WHO ARE OR HAVE BEEN ENROLLED IN A CHEMICAL DEPENDENCY/SUBSTANCEABUSE PROGRAM, SOME INFORMATION MAY BE OMITTED. This clinical summary was aggregated from multiple sources. Caution should be exercised in using it in the provision of clinical care. This summary normalizes information from multiple sources, and as a consequence, information in this document may materially change the coding, format and clinical context of patient data. In addition, data may be omitted in some cases. CLINICAL DECISIONS SHOULD BE BASED ON THE PRIMARY CLINICAL RECORDS. [employer] [facility]. provides no warranty or guarantee of the accuracy or completeness of information in this document.
[2025-02-04 21:51] LABS: Absolute Lymphocyte Count 2.69 X10^3/uL (0.83-4.51); Absolute Neutrophil Count 4.7 X10^3/uL (2.0-7.7); Basophil# 0.05 X10^3/uL; Basophil% 0.6 % (0-1); Eosinophil# 0.16 X10^3/uL; Hematocrit 41.2 % (37-47); Hemoglobin 13.4 g/dL (12.0-15.0); Lymphocyte # 2.69 X10^3/ul (0.83-4.51); Lymphocyte % 33.1 % (19-41); Mean Corp Hgb Conc 32.5 g/dL (32-36); Mean Corpuscular Hgb 26.7 pg (27.0-32.0); Mean Corpuscular Volume 82.2 fL (81-99); Mean Platelet Vol. 10.8 fl (6.2-12.0); Monocyte% 6.2 % (0-10); NRBC Flagged by Analyzer 0 % (0-5); Neutrophil % 57.7 % (47-70); Platelet Count 287 K/mm3 (150-450); RBC Distribution Width CV 13.2 % (11.6-14.6); RBC Distribution Width SD 39.5 fl (35.1-43.9); Red Blood Count 5.01 M/mm3 (4.2-5.4); White Blood Count 8.1 K/mm3 (4.4-11.0)
[2025-02-04 22:09] LABS: ALB/GLOB Ratio 1.6 RATIO (0.9-2.4); AST(SGOT) 42 U/L (<=31); Alanine Aminotransfer ALT/SGPT 63 U/L (<=34); Albumin, Serum 4.8 g/dL (3.5-5.0); Alkaline Phosphatase 77 U/L (35-104); Anion Gap 14 (5-15); BUN 16 mg/dL (4-19); BUN/Creat Ratio 22.5 RATIO (10-20); Calcium,Total 9.9 mg/dL (7.6-11.0); Carbon Dioxide 20.1 mmol/L (21.0-32.0); Chloride 104 mmol/L (98-108); Creatinine, Serum 0.72 mg/dL (0.70-1.20); EST Glomerular Filtration Rate 124 (>60); Globulin 3.1 g/dL (2.2-4.2); Glucose 94 mg/dL (70-99); Potassium 3.7 mmol/L (3.3-5.1); Protein, Total 7.9 g/dL (5.9-8.4); Sodium Level 138 mmol/L (133-145); Total Bilirubin 0.24 mg/dL (0.00-1.30)
[2025-02-04 22:42] LABS: Hemoglobin A1c 5.4 % (<=5.6)
[2025-02-07 15:08] LABS: Anti-Centromere B Ab <0.2 AI (0.0-0.9); Anti-Chromatin <0.2 AI (0.0-0.9); Anti-Jo <0.2 AI (0.0-0.9); Anti-Scleroderma-70 AB <0.2 AI (0.0-0.9); Anti-dsDNA Ab <1 IU/mL (0-9); RNP Ab 0.2 AI (0.0-0.9); SJOGREN'S Anti-SS-A test < 0.2 AI (0.0-0.9); SJOGREN'S Anti-SS-B test < 0.2 AI (0.0-0.9); Smith Ab <0.2 AI (0.0-0.9)
== END | disposition home or self-care (01) ==
PROVIDERS: PCP Nurse Practitioner; Referring Provider Nurse Practitioner; Visit Provider Nurse Practitioner
DX: R21 Rash and other nonspecific skin eruption (principal); R53.83 Other fatigue; T14.8XXA Other injury of unspecified body region, initial encounter; R23.3 Spontaneous ecchymoses
CPT/HCPCS: 80053; 83036; 84443; 85025; 86225; 86235